=== PATIENT | male | born 1955 | race African-American/Black ===

== ENCOUNTER 2016-11-29 17:33 | Inpatient (IN) | payer MEDICAID ==
[~2016-11-29] VITALS: Ht 170.2 cm; Wt 108.9 kg
[~2016-11-29 17:33] MED LIST: ASPIR 8181 MG ORAL; DIPHENHYDRAMINE25 M1 ORAL; IBUPROFEN600 MG ORAL; NORCO 5-325 TA1 EAC1 ORAL; PREDNISONE20 MG ORAL; UNOBMED
[2016-11-29 17:39] VITALS: BP 103/57
--- NOTE | 2016-11-29 18:23 | Emergency Room Report ---
History of Present Illness General Chief Complaint: Pain Source: EMS Present Illness HPI 61 yo male with pmhx of CAD with stents, hypertension p/w chest pain for ~2-3 days. Localized to substernal area, no radiation to back or other areas, sharp in nature, gradual in onset, lasts ~15-20 min, multiple episodes. Reports intermittent SOB. Denies palpitations, diaphoresis, n/v. Patient was recently discharged from [facility] one week ago, states that he had 3 stents placed, reports that he does not have any medication at home because he was not given any. Denies fever, chills, cough, abd pain. Denies trauma. Patient also states that he was treated for right lower extremity cellulitis, got antibiotics, but was not discharged home with any medications. States that they performed tests which were negative and said that it was just an infection. Allergies: Coded Allergies: NO KNOWN DRUG ALLERGIES (Unverified Allergy, Unknown, 07/30/14) Patient History Past Medical History: see triage record Past Surgical History: none Pertinent Family History: none Reviewed Nursing Documentation: PMH: Agreed, PSxH: Agreed Nursing Documentation-PMH Hx Cardiac Problems: Yes - "Clots in heart" - "removed at [facility] Hx Hypertension: Yes Hx Pacemaker: No Hx Asthma: No Hx COPD: No Hx Diabetes: Yes Hx Cancer: No Hx Gastrointestinal Problems: Yes - Hepatitis C Hx Dialysis: No Hx Cerebrovascular Accident: No Hx Seizures: No Review of Systems All Other Systems: negative except mentioned in HPI Physical Exam Vital Signs Date Time Temp Pulse Resp B/P (MAP) Pulse Ox O2 Delivery O2 Flow Rate FiO2 11/29/16 17:21 Room Air 11/29/16 17:39 98.0 65 14 103/57 95 Sp02 EP Interpretation: reviewed, normal General Appearance: alert, GCS 15, non-toxic, other - Middle aged male, appears to be in mild pain, speaking complete sentences not in respiratory distress Head: normocephalic, atraumatic Eyes: bilateral eye normal inspection, bilateral eye PERRL, bilateral eye EOMI ENT: normal ENT inspection, normal pharynx, normal voice, moist mucus membranes Neck: normal inspection, full range of motion, supple Respiratory: normal inspection, lungs clear, normal breath sounds, no respiratory distress, no retraction, no wheezing, speaking full sentences, chest symmetrical Cardiovascular #1: normal inspection, regular rate, rhythm, no edema, normal capillary refill Cardiovascular #2: 2+ radial (R), 2+ radial (L) Gastrointestinal: normal inspection, non tender, soft, non-distended, no guarding Genitourinary: no CVA tenderness Musculoskeletal: back normal, normal range of motion, other - Right lower chimney with 2+ pitting edema, mild erythema, tender to palpation along anterior tib-fib Neurologic: normal inspection, alert, oriented x3, responsive, motor strength/ tone normal, sensory intact, normal gait, speech normal Psychiatric: normal inspection, judgement/insight normal, memory normal Skin: warm/dry, well hydrated, normal turgor Medical Decision Making Diagnostic Impression: Primary Impression: Acute coronary syndrome Additional Impression: Cellulitis of leg without foot, right ER Course 61 yo male with pmhx of CAD, hypertension p/w CP DDX: ACS vs. CHF vs. pneumonia vs. gastritis/GERD vs. pneumothorax Plan: IV access, obtain labs including troponin, EKG, CXR ASA, pain control with nitro / morphine Anticipate admission ER course: Patient was treated with ASA. Tx with vancomycin for RLE cellulitis Labs- Troponin neg x 3 Patient has remained on a monitor, HD stable, chest pain improved. Disposition: Patient requires admission for chest pain. Will be transferred to outside hospital / to insurance issues Spoke with receiving dr Dr Gastelum who has accepted pt. Please note that this Emergency Department Report was dictated using [employer] and cat food cook technology software, occasionally this can lead to erroneous entry secondary to interpretation by the dictation equipment. Laboratory Tests Test 11/29/16 18:20 11/29/16 20:15 White Blood Count 5.8 K/UL (4.8-10.8) Red Blood Count 3.09 M/UL (4.70-6.10) L Hemoglobin 10.4 G/DL (14.2-18.0) L Hematocrit 30.6 % (42.0-52.0) L Mean Corpuscular Volume 99 FL (80-99) Mean Corpuscular Hemoglobin 33.5 PG (27.0-31.0) H Mean Corpuscular Hemoglobin Concent 33.9 G/DL (32.0-36.0) Red Cell Distribution Width 13.1 % (11.6-14.8) Platelet Count 148 K/UL (150-450) L Mean Platelet Volume 6.0 FL (6.5-10.1) L Neutrophils (%) (Auto) 53.0 % (45.0-75.0) Lymphocytes (%) (Auto) 20.3 % (20.0-45.0) Monocytes (%) (Auto) 16.2 % (1.0-10.0) H Eosinophils (%) (Auto) 9.5 % (0.0-3.0) H Basophils (%) (Auto) 0.9 % (0.0-2.0) Sodium Level 142 mEQ/L (135-145) Potassium Level 3.8 mEQ/L (3.4-4.9) Chloride Level 107 mEQ/L (98-107) Carbon Dioxide Level 21 mEQ/L (20-30) Anion Gap 14 (5-15) Blood Urea Nitrogen 15 mg/dL (7-23) Creatinine 0.8 mg/dL (0.7-1.2) Estimate Glomerular Filtration Rate > 60 mL/min (>60) Glucose Level 109 mg/dL (74-106) H Calcium Level 8.2 mg/dL (8.6-10.2) L Total Bilirubin 0.9 mg/dL (0.0-1.2) Aspartate Amino Transferase (AST) 120 U/L (5-40) H Alanine Aminotransferase (ALT) 50 U/L (3-41) H Alkaline Phosphatase 134 U/L (40-129) H Total Creatine Kinase 138 U/L (38-174) Creatine Kinase MB 3.3 ng/mL (< 6.7) Creatine Kinase MB Relative Index 2.3 Troponin I < 0.30 ng/mL (<=0.30) < 0.30 ng/mL (<=0.30) Pro-B-Type Natriuretic Peptide 431 pg/mL (0-125) H Total Protein 6.7 g/dL (6.6-8.7) Albumin 3.3 g/dL (3.5-5.2) L Globulin 3.4 g/dL Albumin/Globulin Ratio 0.9 (1.0-2.7) L EKG Diagnostic Results Rate: normal Rhythm: NSR ST Segments: other - TWI inferior leads Rhythm Strip Diag. Results EP Interpretation: yes Rate: 64 Rhythm: NSR, no PVC's, no ectopy Chest X-Ray Diagnostic Results Chest X-Ray Diagnostic Results : Chest X-Ray Ordered: Yes # of Views/Limited/Complete: 1 View Indication: Chest Pain EP Interpretation: Yes Interpretation: other - cardiomegaly, mild pulm vasc congestion Impression: Other - cardiomegaly, mild pulm vasc congestion Interpreting ER Provider: Electronically signed by Gopi Lopez MD Last Vital Signs Date Time Temp Pulse Resp B/P (MAP) Pulse Ox O2 Delivery O2 Flow Rate FiO2 11/29/16 17:39 98.0 65 14 103/57 95 Room Air Disposition: XFER SHT-TRM HOSP Condition: Serious Referrals: MACIEJ CAMPOS,REFERRING (PCP) Gopi Lopez M.D. Nov 29, 2016 18:23
[2016-11-29 18:39] LABS: BASOPHILS % (AUTO) 0.9 % (0.0-2.0); EOSINOPHILS % (AUTO) 9.5 % (0.0-3.0); LYMPHOCYTES % (AUTO) 20.3 % (20.0-45.0); MEAN CORPUSCULAR HEMOGLOBIN 33.5 PG (27.0-31.0); MEAN CORPUSCULAR HGB CONC 33.9 G/DL (32.0-36.0); MEAN CORPUSCULAR VOLUME 99 FL (80-99); MONOCYTES % (AUTO) 16.2 % (1.0-10.0); PLATELET COUNT 148 K/UL (150-450); RED BLOOD COUNT 3.09 M/UL (4.70-6.10); RED CELL DISTRIBUTION WIDTH 13.1 % (11.6-14.8); WHITE BLOOD COUNT 5.8 K/UL (4.8-10.8)
[2016-11-29 18:55] LABS: ALANINE AMINOTRANSFERASE 50 U/L (3-41); ALBUMIN/GLOBULIN RATIO 0.9 (1.0-2.7); ANION GAP 14 (5-15); ASPARTATE AMINO TRANSFERASE 120 U/L (5-40); CALCIUM 8.2 mg/dL (8.6-10.2); CARBON DIOXIDE 21 mEQ/L (20-30); CHLORIDE 107 mEQ/L (98-107); CREATININE 0.8 mg/dL (0.7-1.2); GLOMERULAR FILTRATION RATE > 60 mL/min (>60); HEMOLYSIS 5; POTASSIUM 3.8 mEQ/L (3.4-4.9); SODIUM 142 mEQ/L (135-145); TOTAL PROTEIN 6.7 g/dL (6.6-8.7); TROPONIN I < 0.30 ng/mL (<=0.30)
[2016-11-29 19:05] VITALS: BP 113/52
[2016-11-29 19:06] LABS: CKMB 3.3 ng/mL (< 6.7)
[2016-11-29] MEDS ORDERED: Vancomycin 1.5gm/D5W 250ml 250 ML IVPB ONE (20:15)
[2016-11-29 20:46] LABS: TROPONIN I < 0.30 ng/mL (<=0.30)
[2016-11-29 21:05] VITALS: BP 142/71
[2016-11-29] MEDS ORDERED: Morphine Sulfate 4mg/ml Inj IVP ONE (22:30)
[2016-11-29 23:05] VITALS: BP 149/76
[2016-11-30] VITALS (7 sets, daily range): BP systolic 110–139; BP diastolic 49–76
[2016-11-30 00:12] LABS: APPEARANCE,URINE CLEAR; KETONES,URINE NEGATIVE (NEGATIVE); LEUKOCYTE ESTERASE ,URINE 1+ (NEGATIVE); NITRITE,URINE NEGATIVE (NEGATIVE); PH,URINE 6 (4.5-8.0); PROTEIN,URINE NEGATIVE (NEGATIVE); UROBILINOGEN,URINE 4 MG/DL (0.0-1.0)
[2016-11-30 00:21] LABS: RBC,URINE 15-20 /HPF (0 - 0); WBC,URINE 0-2 /HPF (0 - 0)
[2016-11-30] MEDS ORDERED: Zolpidem 5mg tab ORAL PRN (03:15)
[2016-11-30] MEDS: Nitroglycerin 2% oint pkt TOPIC SCH ×3 (05:44→17:48)
[2016-11-30 08:05] LABS: CHOLESTEROL/HDL RATIO 2.3 (3.3-4.4)
[2016-11-30 08:06] LABS: TROPONIN I < 0.30 ng/mL (<=0.30)
--- NOTE | 2016-11-30 09:44 | Diagnostic Imaging Report ---
Indication: Chest pain Technique: One view of the chest Comparison: none Findings: Heart is enlarged. Lungs and pleural spaces are clear. There is no significant interim change Impression: Cardiomegaly No acute process
[2016-11-30] MEDS: Aspirin Baby 81mg ORAL SCH (09:50)
[2016-11-30] MEDS: Atenolol 25mg tab ORAL SCH ×2 (09:50→17:48)
[2016-11-30] MEDS: Heparin 5000 units/ml inj SUBQ SCH ×2 (09:54→21:42)
[2016-11-30] MEDS: Norco 5mg/325mg tab ORAL PRN ×2 (12:15→19:40)
[2016-11-30] MEDS: Vancomycin 1.5 GM/D5W 250ML IVPB SCH ×2 (12:22→22:17)
--- NOTE | 2016-11-30 12:31 | History & Physical ---
History and Physical History & Physicial 61 yo male with CAD presents with chest pain for ~2-3 days. Localized to substernal area, no radiation to back or other areas, sharp in nature, gradual in onset. Patient with some shortness of breath. Patient was recently discharged from [facility] one week ago, states that he had 3 stents placed, reports that he does not have any medication at home and is unable to fill. Denies fever, chills, cough, abd pain. Denies trauma. Patient also states that he was treated for right lower extremity cellulitis, and was given a PICC line and IV antibiotics. He currently admits to leg swelling Allergies: NO KNOWN DRUG ALLERGIES (Unverified Allergy, Unknown, 07/30/14) Past Medical History: CAD, stents, htn, hepatitis C, diabetes Past Surgical History: none Pertinent Family History: none Physical exam WDWN NAD clear breath sounds bilaterally without rhonchi or wheeze [id number] without MRG NABS nontender no HSM no CC mild edema and erythema of the right leg nonfocal Labs Test 11/29/16 18:20 11/29/16 20:15 11/29/16 23:53 11/30/16 07:10 White Blood Count 5.8 K/UL (4.8-10.8) Red Blood Count 3.09 M/UL (4.70-6.10) Hemoglobin 10.4 G/DL (14.2-18.0) Hematocrit 30.6 % (42.0-52.0) Mean Corpuscular Volume 99 FL (80-99) Mean Corpuscular Hemoglobin 33.5 PG (27.0-31.0) Mean Corpuscular Hemoglobin Concent 33.9 G/DL (32.0-36.0) Red Cell Distribution Width 13.1 % (11.6-14.8) Platelet Count 148 K/UL (150-450) Mean Platelet Volume 6.0 FL (6.5-10.1) Neutrophils (%) (Auto) 53.0 % (45.0-75.0) Lymphocytes (%) (Auto) 20.3 % (20.0-45.0) Monocytes (%) (Auto) 16.2 % (1.0-10.0) Eosinophils (%) (Auto) 9.5 % (0.0-3.0) Basophils (%) (Auto) 0.9 % (0.0-2.0) Sodium Level 142 mEQ/L (135-145) Potassium Level 3.8 mEQ/L (3.4-4.9) Chloride Level 107 mEQ/L (98-107) Carbon Dioxide Level 21 mEQ/L (20-30) Anion Gap 14 (5-15) Blood Urea Nitrogen 15 mg/dL (7-23) Creatinine 0.8 mg/dL (0.7-1.2) Estimat Glomerular Filtration Rate > 60 mL/min (>60) Glucose Level 109 mg/dL (74-106) Calcium Level 8.2 mg/dL (8.6-10.2) Total Bilirubin 0.9 mg/dL (0.0-1.2) Aspartate Amino Transf (AST/SGOT) 120 U/L (5-40) Alanine Aminotransferase (ALT/SGPT) 50 U/L (3-41) Alkaline Phosphatase 134 U/L (40-129) Total Creatine Kinase 138 U/L (38-174) Creatine Kinase MB 3.3 ng/mL (< 6.7) Creatine Kinase MB Relative Index 2.3 Troponin I < 0.30 ng/mL (<=0.30) < 0.30 ng/mL (<=0.30) < 0.30 ng/mL (<=0.30) Pro-B-Type Natriuretic Peptide 431 pg/mL (0-125) Total Protein 6.7 g/dL (6.6-8.7) Albumin 3.3 g/dL (3.5-5.2) Globulin 3.4 g/dL Albumin/Globulin Ratio 0.9 (1.0-2.7) Urine Color Yellow Urine Appearance Clear Urine pH 6 (4.5-8.0) Urine Specific [place] 1.010 (1.005-1.035) Urine Protein Negative (NEGATIVE) Urine Glucose (UA) Negative (NEGATIVE) Urine Ketones Negative (NEGATIVE) Urine Occult Blood 2+ (NEGATIVE) Urine Nitrite Negative (NEGATIVE) Urine Bilirubin Negative (NEGATIVE) Urine Urobilinogen 4 MG/DL (0.0-1.0) Urine Leukocyte Esterase 1+ (NEGATIVE) Urine RBC 15-20 /HPF (0 - 0) Urine WBC 0-2 /HPF (0 - 0) Urine Squamous Epithelial Cells None /LPF (NONE/OCC) Urine Bacteria None /HPF (NONE) Triglycerides Level 142 mg/dL (< 150) Cholesterol Level 101 mg/dL (< 200) LDL Cholesterol 30 mg/dL (60-99) HDL Cholesterol 43 mg/dL (> 60) Cholesterol/HDL Ratio 2.3 (3.3-4.4) Acetone Level Negative (NEGATIVE) Test 11/30/16 12:05 IMPRESSION chest pain possible ACS ho of CAD ho of stents diabetes mild cellulitis PLAN cardiac monitoring troponins negative IV vanco dobutamine echo in am dc planning with po antibiotics in am if stable PILI ALCALA Nov 30, 2016 12:31
[2016-11-30 12:32] LABS: TROPONIN I < 0.30 ng/mL (<=0.30)
[2016-11-30 21:20] LABS: TROPONIN I < 0.30 ng/mL (<=0.30)
[2016-12-01 00:25] VITALS: BP 138/70
[2016-12-01] MEDS: Norco 5mg/325mg tab ORAL PRN ×3 (00:45→21:32)
[2016-12-01 04:30] VITALS: BP 140/72
[2016-12-01] MEDS: Nitroglycerin 2% oint pkt TOPIC SCH ×3 (05:45→17:27)
[2016-12-01 08:33] VITALS: BP 166/90
[2016-12-01] MEDS: Atenolol 25mg tab ORAL SCH ×2 (09:00→17:27)
[2016-12-01] MEDS: Aspirin Baby 81mg ORAL SCH (09:13)
[2016-12-01] MEDS: Heparin 5000 units/ml inj SUBQ SCH ×2 (09:15→21:23)
--- NOTE | 2016-12-01 10:40 | General Progress Note ---
Assessment/Plan Assessment/Plan IMPRESSION chest pain possible ACS ho of CAD ho of stents diabetes mild cellulitis PLAN cardiac monitoring troponins negative IV vanco--> change to Keflex dobutamine echo today dc planning with po antibiotics today if stress negative follow up with [facility] Subjective Allergies: Coded Allergies: NO KNOWN DRUG ALLERGIES (Unverified Allergy, Unknown, 07/30/14) Subjective has diffuse body pain chronically ill has been getting care at [facility] Objective Last 24 Hour Vital Signs Date Time Temp Pulse Resp B/P (MAP) Pulse Ox O2 Delivery O2 Flow Rate FiO2 12/01/16 09:00 58 143/67 12/01/16 08:33 97.5 59 18 166/90 99 Room Air 12/01/16 06:45 98.0 12/01/16 05:45 140/72 12/01/16 04:30 98.0 58 20 140/72 96 Room Air 12/01/16 04:00 54 12/01/16 00:25 98.2 62 20 138/70 98 Room Air 11/30/16 20:18 98.2 62 20 138/70 98 Room Air 11/30/16 20:00 62 11/30/16 17:48 61 110/49 11/30/16 17:48 110/49 11/30/16 16:02 61 11/30/16 15:35 97.7 61 20 110/49 99 Room Air 11/30/16 12:22 136/76 11/30/16 12:00 97.7 61 20 133/71 98 Room Air 11/30/16 11:33 62 Laboratory Tests 11/30/16 12:05: Troponin I < 0.30 11/30/16 21:00: Troponin I < 0.30 Height (Feet): 5 Height (Inches): 7.00 Weight (Pounds): 240 Objective WDWN NAD clear breath sounds bilaterally without rhonchi or wheeze [id number] without MRG NABS nontender no HSM no CC mild edema with minimal erythema nonfocal PILI ALCALA Dec 01, 2016 10:40
[2016-12-01 11:42] VITALS: BP 139/84
[2016-12-01] MEDS ORDERED: Vancomycin 1.5 GM/D5W 250ML IVPB SCH (13:00)
[2016-12-01] MEDS ORDERED: Adenosine Inj IVP ONE (13:30)
[2016-12-01] MEDS: Vancomycin 1250mg/D5W 250ml IVPB SCH (13:39)
[2016-12-01 15:36] VITALS: BP 154/81
[2016-12-01 20:00] VITALS: BP 118/59
[2016-12-02] VITALS: BP_SYST 108; BP_SYST 150; BP_DIAS 55; BP_DIAS 79
[2016-12-02] MEDS: Vancomycin 1250mg/D5W 250ml IVPB SCH ×2 (00:13→13:00)
[2016-12-02] MEDS: Norco 5mg/325mg tab ORAL PRN ×2 (01:39→08:42)
[2016-12-02 04:00] VITALS: BP 141/62
[2016-12-02] MEDS: Nitroglycerin 2% oint pkt TOPIC SCH ×2 (05:35→12:00)
--- NOTE | 2016-12-02 07:15 | Consultation ---
DATE OF CONSULTATION: 11/30/2016 CARDIOLOGY CONSULTATION REQUESTING PHYSICIAN: Dom Majano M.D. REASON FOR CONSULTATION: Chest pain in the setting of coronary artery disease. HISTORY OF PRESENT ILLNESS: This is a 61-year-old male, who has a known history of coronary disease. He has had several days of recurring chest pressure. It is localized to the substernal area. It is described as sharp and gradual in onset and occurs with both exertion and rest. Episodes are associated with some shortness of breath. The patient was hospitalized at [facility] about a week ago. He apparently had three coronary stents placed at that time. The patient has had some swelling of his right leg and has been on IV therapy for cellulitis. He was admitted to the hospital early this morning and troponin levels have been negative x2. PAST MEDICAL HISTORY: Includes diabetes mellitus type 2, coronary artery disease with recent history of coronary stents, and hepatitis C carrier. ALLERGIES: None. FAMILY HISTORY: Noncontributory. SOCIAL HISTORY: Denies smoking, alcohol, or substance abuse. REVIEW OF SYSTEMS: Pertinent positive as noted above, otherwise unremarkable. PHYSICAL EXAMINATION: VITAL SIGNS: Afebrile. Blood pressure 110/49, heart rate 61, respiratory rate 18, and afebrile. EXTREMITIES: Right lower extremity has 1+ erythema and edema. No cords. NECK: Supple. Jugular venous pressure normal. LUNGS: Clear. CARDIAC: Regular. Normal S1 and S2 with no murmur. DIAGNOSTIC DATA: EKG reveals sinus rhythm with nonspecific ST-T wave changes. IMPRESSION: 1. Possible acute coronary syndrome. 2. Recent coronary stents. 3. Hypertensive heart disease. 4. Right lower extremity cellulitis and edema. PLAN: 1. Continue cardiac monitoring. 2. Anti-platelet and anti-lipid therapy. 3. Venous duplex of the right lower extremity. 4. IV antibiotics. 5. Consider transfer for cardiac catheterization, if any definitive signs of acute ischemia. Otherwise, will anticipate noninvasive assessment of coronary flow reserved prior to discharge. Edwin Quiñones M.D. DR: SCHUYLER JOB#: [id number] CC:
--- NOTE | 2016-12-02 07:16 | Progress Note ---
DATE: 12/01/2016 CARDIOLOGY PROGRESS NOTE SUBJECTIVE: The patient had a myocardial perfusion scan performed today. Results are pending. The patient has diffuse pain. No shortness of breath. The patient remains on antibiotics for his right lower extremity cellulitis. OBJECTIVE: VITAL SIGNS: Blood pressure is 143/67, pulse rate 58, and respiratory rate 18. NECK: Supple. LUNGS: Clear. CARDIAC: Regular. Normal S1 and S2. No murmur. ABDOMEN: Soft. EXTREMITIES: Right lower extremity edema 1+ with erythema. IMPRESSION: 1. Coronary artery disease with recent coronary stent. 2. Acute coronary insufficiency. 3. Hypertension. 4. Sinus bradycardia, on beta-blockers. 5. Right lower extremity cellulitis with edema. PLAN: 1. Venous Duplex of right lower extremity. 2. Continue anti-platelet, antianginal, and statin drug. 3. Await results of myocardial perfusion scan. 4. If study revealed significant areas of reversible ischemia, recommendation for repeat catheterization will follow, otherwise outpatient followup will be the plan. 5. Venous Duplex scan to rule out deep venous thrombosis as a source of pulmonary emboli is requested. Thelma Bhatia JOB#: [id number] CC:
[2016-12-02 08:28] VITALS: BP 124/72
[2016-12-02] MEDS: Aspirin Baby 81mg ORAL SCH (08:42)
[2016-12-02] MEDS: Heparin 5000 units/ml inj SUBQ SCH (08:46)
[2016-12-02] MEDS: Atenolol 25mg tab ORAL SCH (09:00)
--- NOTE | 2016-12-02 09:41 | Diagnostic Imaging Report ---
Indications: 61-year-old male with chest pain and hypertension. Recent placement of 3 stents Technique: Single day single isotope protocol utilized. Initially, resting images obtained using IV administration 10.6 millicuries 99M technetium Myoview. Subsequently, patient underwent adenosine stress testing. See cardiology report for details. During adenosine infusion, IV administration 28.1 mCi 99 M technetium Myoview. SPECT and planar images obtained. SPECT images gated to 8 phases of the cardiac cycle were also obtained, and reformatted into cine images for evaluation of ejection fraction. Comparison: None Findings: Per cardiology report, patient experienced chest pressure and flushing. Per cardiology report, resting EKG demonstrates sinus bradycardia and nonspecific ST-T wave changes. Cardiology report does not report the presence or absence of ST changes with stress. Imaging demonstrates apparent fixed decreased perfusion in the inferolateral wall, more questionable fixed decreased perfusion in the anterior wall. No definite reversible perfusion abnormality demonstrated. Normal cardiac chamber size.. Calculated post stress ejection fraction 67%. No focal wall motion abnormality Impression: Nondiagnostic clinical response to pharmacologic stress, per cardiology report Nondiagnostic electrocardiographic response to pharmacologic stress, per cardiology report Apparent fixed inferolateral perfusion defect. Although this could represent an infarct, this is is also possibly artifactual on the basis of soft tissue attenuation, given normal ejection fraction and lack of apparent wall motion abnormality in this area. No evidence of ischemia, at level of stress achieved Calculated post stress ejection fraction 67%
--- NOTE | 2016-12-02 09:43 | General Progress Note ---
Assessment/Plan Assessment/Plan IMPRESSION chest pain possible ACS ho of CAD ho of stents diabetes mild cellulitis PLAN cardiac monitoring troponins negative PO Keflex dobutamine echo NEGATIVE dc planning with po antibiotics [facility] Subjective Allergies: Coded Allergies: NO KNOWN DRUG ALLERGIES (Unverified Allergy, Unknown, 07/30/14) Subjective has diffuse body pain chronically ill has been getting care at [facility] NO REVERSIBLE ISCHEMIA Objective Last 24 Hour Vital Signs Date Time Temp Pulse Resp B/P (MAP) Pulse Ox O2 Delivery O2 Flow Rate FiO2 12/02/16 09:00 59 124/72 12/02/16 08:28 97.9 59 20 124/72 96 Room Air 12/02/16 05:35 136/68 12/02/16 04:00 98.2 55 20 141/62 96 Room Air 12/02/16 04:00 55 12/02/16 02:38 98.4 12/02/16 00:00 97.8 59 18 150/79 97 Room Air 12/02/16 00:00 55 12/01/16 20:00 56 12/01/16 20:00 98.2 59 18 118/59 97 Room Air 12/01/16 17:27 69 154/81 12/01/16 17:27 154/81 12/01/16 16:00 69 12/01/16 15:36 97.9 60 18 154/81 99 Room Air 12/01/16 13:39 139/84 12/01/16 12:00 63 12/01/16 11:42 97.2 54 18 139/84 97 Room Air Laboratory Tests 12/01/16 11:45: Vancomycin Level Trough 14.3H Height (Feet): 5 Height (Inches): 7.00 Weight (Pounds): 240 Objective WDWN NAD clear breath sounds bilaterally without rhonchi or wheeze [id number] without MRG NABS nontender no HSM no CC mild edema with minimal erythema nonfocal PILI ALCALA Dec 02, 2016 09:43
[2016-12-02 12:01] VITALS: BP 130/65
[2016-12-02] MEDS ORDERED: Tubing IV Secondary IV ONE (14:16)
[2016-12-02] MEDS ORDERED: NS 275ml ONE (14:16)
[2016-12-02] MEDS ORDERED: D5 1/2NS 1000ml IV ONE (14:16)
--- NOTE | 2016-12-02 16:46 | Cardiology Report ---
APPROVED REPORT EKG Measurement Heart [id number] Normal sinus rhythm Nonspecific T wave abnormality Prolonged QT Abnormal ECG
--- NOTE | 2016-12-03 03:30 | Progress Note ---
DATE: 12/02/2016 CARDIOLOGY PROGRESS NOTE SUBJECTIVE: The patient had a myocardial perfusion scan performed yesterday that revealed an ejection fraction of 67% with fixed inferolateral perfusion defect and no ischemia. The patient had a deep venous Duplex study done today that revealed chronic thrombus re-cannulized in the right lower extremity only. The patient is without any new complaints. OBJECTIVE: VITAL SIGNS: Blood pressure is 124/72, pulse 59, and respiratory rate 20. NECK: Supple. LUNGS: Clear. CARDIAC: Regular. Normal S1 and S2. ABDOMEN: Soft. EXTREMITIES: Right erythema and cellulitic changes. IMPRESSION: 1. Coronary artery disease. 2. History of myocardial infarction, status post coronary stent, no reversible ischemia noted on myocardial perfusion scan, would suggest low ischemic burden. 3. Subacute recannulized right lower extremity thrombus cellulitis. PLAN: 1. Continue anti-platelet and anti-lipid drugs. 2. Maintain current antianginal regimen. 3. Antibiotics, per primary care physician. 4. No role for anticoagulation at this time. 5. Outpatient followup with serial venous Duplex study is recommended. Edwin Quiñones M.D. DR: DANIEL/mekhi JOB#: [id number] CC:
--- NOTE | 2016-12-03 14:43 | Diagnostic Imaging Report ---
APPROVED REPORT CPT Code: 44848 RIGHT LEG: Venous imaging reveals recanalized chronic thrombus in the superficial femoral vein. The remainder of the deep venous system is within normal limits. There is no evidence of thrombus in the common femoral, popliteal or calf veins. The greater saphenous vein is also within normal limits. Doppler indicates normal spontaneous flow within these segments. LEFT LEG: Venous imaging reveals a patent deep venous system. There is no evidence of thrombus within the femoral, popliteal or tibial segments. The greater saphenous vein is also within normal limits. Doppler indicates normal spontaneous flow within these segments. There is no evidence of acute deep vein thrombosis.
--- NOTE | 2016-12-03 16:43 | Discharge Summary ---
Discharge Summary Hospital Course Date of Admission Nov 30, 2016 at 00:50 Date of Discharge Dec 02, 2016 at 14:17 Admitting Diagnosis chest pain HPI Mega Laguna is a 61 year old male who was admitted on Nov 30, 2016 at 00:50 for Chest Pain Hospital Course [id number] Discharge Discharge Disposition Patient was discharged to Home (01) Discharge Diagnoses: Lucy Phillip NP Dec 03, 2016 16:42
--- NOTE | 2016-12-04 06:15 | Discharge Summary 2 SIG ---
DATE OF ADMISSION: 11/30/2016 DATE OF DISCHARGE: 12/02/2016 HERBARIUM CURATOR: Edwin Quiñones M.D. BRIEF HOSPITAL COURSE: The patient is a 61-year-old male with history of coronary artery disease, presented to ED complaining of chest pain for two to three days localized to the substernal area with no radiation to back. It was sharp in nature and had a gradual onset and associated with shortness of breath. He was recently discharged from [facility] where he had stents placed and reports that he did not have any medications at home and was unable to fill his medications. He was also recently treated for right lower extremity cellulitis and had a PICC line and was given IV antibiotic. He complained of leg swelling. On evaluation at ED, the patient was given aspirin. Initial troponin was negative and EKG was in normal sinus rhythm with T-wave inversion on the inferior leads. Chest x-ray done showed pulmonary vascular congestion with cardiomegaly. He was then admitted to telemetry and underwent cardiac evaluation. He was given anti-lipid therapy and aspirin 81 mg daily. Cardiac enzymes were monitored. He underwent myocardial perfusion scan. Results showed ejection fraction of 67% with a fixed inferolateral perfusion defect and low ischemia. He had a venous duplex of the lower extremity that showed a recannulized chronic thrombus on the right leg. He was given IV vancomycin and was later changed to p.o. Keflex. The patient was eventually discharged home. Advised to follow up as outpatient. FINAL DIAGNOSES: 1. Coronary artery disease. 2. History of myocardial infarction status post coronary stent, no reversible ischemia noted on myocardial perfusion scan, would suggest low ischemic burden. 3. Subacute recannulized right lower extremity thrombus cellulitis. 4. Diabetes. DISPOSITION: The patient was discharged home. DISCHARGE MEDICATIONS: Refer to med list. FOLLOWUP: The patient was advised to follow up with PMD. ACTIVITY: As tolerated. Dom Majano M.D. I have been assigned to dictate discharge summary on this account and I was not involved in the patient's management. Lucy Phillip N.P. DR: SOULEYMANE JOB#: [id number] CC: MANUELA
--- NOTE | 2016-12-07 18:53 | Cardiology Report ---
APPROVED REPORT EKG Measurement Heart [id number] Normal sinus rhythm Normal ECG
== END 2016-12-02 14:17 | disposition home or self-care (01) | DRG 198 ==
LOC: EDBD 17:33 → EMR 17:47 → EDBEDREQ 11-30 00:43 → 2E 11-30 00:50
DX: I25.119 Atherosclerotic heart disease of native coronary artery with unspecified angina pectoris (principal); I82.501 Chronic embolism and thrombosis of unspecified deep veins of right lower extremity; I11.9 Hypertensive heart disease without heart failure; L03.115 Cellulitis of right lower limb; R00.1 Bradycardia, unspecified; E11.9 Type 2 diabetes mellitus without complications; I25.2 Old myocardial infarction; Z95.5 Presence of coronary angioplasty implant and graft; B18.2 Chronic viral hepatitis C
CPT/HCPCS: 36415; 71010; 78452; 80053; 80061; 80202; 81003; 82009; 82550; 82553; 82962; 83880; 84484; 85025; 93005; 93017; 93970; 99285